=== PATIENT | female | born 1945 | race Caucasian/White ===

== ENCOUNTER → 2016-06-16 | Outpatient (CLI) | payer MEDICARE, BC ==
[2015-12-27 17:39] VITALS: BP 118/71
[~2016-06-16] MED LIST: ALPR0.5T PO; BUPR100T6 PO; BUPR150T15 PO; FLUT1DIS3 IH; OMEG1CAP50 PO; RANI150T6 PO; UMEC1DIS IH
--- NOTE | 2016-06-16 11:21 | RAD ---
Bilateral knee radiographs History: Bilateral knee osteoarthritis. Left knee surgery. Comparison: Right knee radiographs 08/31/2010. Findings: Standing AP, lateral, and oblique views of the right knee. No acute fracture or dislocation is identified. Mild tricompartment degeneration is seen with marginal osteophyte formation and relative preservation of joint space. No joint effusion is seen. Meniscal chondrocalcinosis is noted. Standing AP, lateral, and oblique views of the left knee. Mild lateral and patellofemoral compartment degeneration is seen with marginal osteophyte formation. Mild-moderate medial compartment degeneration is seen with marginal osteophyte formation and mild loss of joint space. Meniscal chondrocalcinosis is seen. Impression: 1. No acute osseous traumatic injury identified. 2. Meniscal chondrocalcinosis. 3. Both kidneys demonstrate tricompartment degeneration, worst in the medial compartment of the left knee where it is mild-moderate severity.
== END | disposition home or self-care (01) ==
LOC: DXRADRC 10:20
PROVIDERS: ATTEND Physician Assistant Medical
DX: M17.0 Bilateral primary osteoarthritis of knee (principal); M11.262 Other chondrocalcinosis, left knee; M11.261 Other chondrocalcinosis, right knee; M25.762 Osteophyte, left knee; M25.761 Osteophyte, right knee
CPT/HCPCS: 73562

== ENCOUNTER → 2016-08-13 | Outpatient (CLI) | payer MEDICARE, BC ==
[2015-12-27 17:39] VITALS: BP 118/71
--- NOTE | 2016-08-13 08:56 | RAD ---
Indication cough for one week. COPD. History of lung cancer. Smoking history. PA and lateral views of the chest were obtained. Comparison is made to an examination 12/27/2015. There is unchanged elevation of the right hemidiaphragm. Heart size is within normal limits. An acute parenchymal infiltrate is not seen. There is a granuloma in the left lung, unchanged. An acute finding in the chest is not seen. A significant change compared to the prior study is not seen. IMPRESSION: No acute finding. No significant change
== END | disposition home or self-care (01) ==
LOC: DXRADRC 08:01
PROVIDERS: ATTEND Nurse Practitioner Family
DX: J44.9 Chronic obstructive pulmonary disease, unspecified (principal); J84.10 Pulmonary fibrosis, unspecified; Z85.118 Personal history of other malignant neoplasm of bronchus and lung; Z87.891 Personal history of nicotine dependence
CPT/HCPCS: 71020

== ENCOUNTER → 2017-01-24 | Outpatient (CLI) | payer MEDICARE ==
[2015-12-27 17:39] VITALS: BP 118/71
--- NOTE | 2017-01-24 11:31 | RAD ---
Examination: Ultrasound pelvis History: History of vaginal discharge Comparison: None available Technique: Transabdominal, transvaginal ultrasound examination of the pelvis. Findings: The uterus is not identified likely prior surgical changes of hysterectomy. The right ovary, left ovary could not be identified. Impression: Limited examination of the right and left ovaries could not be identified. Unremarkable visualized exam.
== END | disposition home or self-care (01) ==
LOC: US 09:45
PROVIDERS: ATTEND Physician Assistant Medical
DX: N89.8 Other specified noninflammatory disorders of vagina (principal); Z87.891 Personal history of nicotine dependence; Z90.710 Acquired absence of both cervix and uterus
CPT/HCPCS: 76830; 76856

== ENCOUNTER → 2017-02-18 | Outpatient (CLI) | payer MEDICARE ==
[2015-12-27 17:39] VITALS: BP 118/71
[~2017-02-18] MED LIST changes: +IOHEXOL 300 MG/ML 75 ML VIAL. IV ONE
--- NOTE | 2017-02-18 19:49 | RAD ---
CT angiography chest with contrast TECHNIQUE: Helical CT imaging of the chest with multiplanar 3-D MIP reconstructions of the pulmonary arteries to assess for emboli with 60 mL Isovue-370 intravenous contrast. COMPARISON: CT chest December 27, 2015. HISTORY: Elevated d-dimer, history of lung cancer status post right lower lobectomy, shortness of breath. FINDINGS: Numerous inferior thyroid substernal nodules and calcifications. Mild fluid within the esophagus perhaps due to reflux. Mild superior pericardial fluid. Heart size normal. Thoracic aorta is unremarkable. Under opacification of the pulmonary arteries may decrease sensitivity to detect small peripheral pulmonary emboli, in light of this no pulmonary artery embolus is evident. No adenopathy in the chest. Minimal dependent right pleural fluid or pleural thickening along the diaphragm is stable. Right lower lobectomy. Left upper lobe and left hilum calcified granulomas. Groundglass opacities at the dependent right lung abutting the diaphragm likely corresponding to the right upper lobe. There is also mild interstitial thickening surrounded by the opacity at the dependent right lung base. Old right rib deformities. IMPRESSION: 1. No pulmonary artery embolus. See discussion above. 2. Right lower lobectomy. There is regional 6 cm groundglass opacity and interstitial thickening with reticulation at the dependent right lung base corresponding to the right upper lobe above the diaphragm. This could represent asymmetric pulmonary edema, changes of radiation treatment, pneumonia or pneumonitis. Consider follow-up imaging in 3 months per Fleischner guidelines to document that this resolves to exclude the possibility of nonmass-like adenocarcinoma or in situ lesion. 3. Mild fluid within the esophagus perhaps related to reflux. 4. Numerous substernal thyroid nodules and calcifications again demonstrated. Exposure: One or more of the following individualized dose reduction techniques were utilized for this examination: 1. Automated exposure control 2. Adjustment of the mA and/or kV according to patient size 3. Use of iterative reconstruction technique Electronically signed by: Chucho Trent MD (02/18/2017 7:46 PM) [facility]
== END | disposition home or self-care (01) ==
LOC: RAD 18:04
PROVIDERS: ATTEND Physician Assistant Medical
DX: R50.9 Fever, unspecified (principal); R06.02 Shortness of breath; R79.1 Abnormal coagulation profile; E04.2 Nontoxic multinodular goiter; Z87.891 Personal history of nicotine dependence
CPT/HCPCS: 71275; Q9967

== ENCOUNTER → 2017-02-18 | Outpatient (CLI) | payer MEDICARE ==
[2015-12-27 17:39] VITALS: BP 118/71
[~2017-02-18] MED LIST changes: -IOHEXOL 300 MG/ML 75 ML VIAL. IV ONE
[2017-02-18 15:37] LABS: BASO # 0.1 x10^3/uL (0.0-0.2); BASO % 1 % (0-3); EOS # 0.1 x10^3/uL (0.0-0.7); EOS % 1 % (0-3); HEMATOCRIT 39.8 % (36.0-47.0); HEMOGLOBIN 13.3 g/dL (12.0-15.5); LYMPH # 1.8 x10^3/uL (1.0-4.8); LYMPH % 13 % (24-48); MEAN CORPUSCULAR HEMOGLOBIN 31 pg (25-35); MEAN CORPUSCULAR HGB CONC 34 g/dL (31-37); MEAN CORPUSCULAR VOLUME 94 fL (79-100); MONO # 1.2 x10^3/uL (0.0-1.1); MONO % 9 % (0-9); NEUT # 10.7 x10^3uL (1.8-7.7); NEUT % 77 % (31-73); PLATELET COUNT 216 x10^3/uL (140-400); RED BLOOD COUNT 4.25 x10^6/uL (3.50-5.40); RED CELL DISTRIBUTION WIDTH 14.3 % (11.5-14.5); WHITE BLOOD COUNT 13.9 x10^3/uL (4.0-11.0)
--- NOTE | 2017-02-18 16:48 | RAD ---
Chest, 2 views, 02/18/2017: History: Cough Comparison comparison is made to a study from 08/13/2016. The heart size is normal. There is mild chronic elevation of the right hemidiaphragm. Unchanged blunting of the right lateral costophrenic angle is compatible with scarring. No acute infiltrates are seen. No pleural fluid is evident. Moderate spurring is present in the spine. IMPRESSION: No acute cardiopulmonary abnormality is detected with no significant change since 08/13/2016.
[2017-02-18 18:34] LABS: GFR 54.7
== END | disposition home or self-care (01) ==
LOC: PMG 15:18
PROVIDERS: ATTEND Nurse Practitioner Family
DX: R05 Cough (principal); R50.9 Fever, unspecified; R06.02 Shortness of breath; Z87.891 Personal history of nicotine dependence
CPT/HCPCS: 36415; 71020; 82565; 85025; 85379

== ENCOUNTER → 2017-08-16 | Outpatient (CLI) | payer MEDICARE ==
[2015-12-27 17:39] VITALS: BP 118/71
[~2017-08-16] MED LIST changes: +RANI150T21 PO; -RANI150T6 PO
--- NOTE | 2017-08-16 16:32 | RAD ---
DATE: 08/16/2017 EXAM: MAMMO SHAWN SCREENING BILATERAL HISTORY: Routine screening COMPARISON: 04/16/2014 This study was interpreted with the benefit of Computerized Aided Detection (CAD). The breast parenchyma is heterogeneously dense, which could reduce sensitivity of mammography. Breast parenchyma level C. FINDINGS: 2-D and 3-D tomosynthesis imaging was performed in CC and MLO projections. No new or enlarging breast densities are seen. Benign type calcifications are present bilaterally. No suspicious microcalcifications have developed. IMPRESSION: Stable mammograms without evidence of malignancy. BI-RADS CATEGORY: 2 BENIGN FINDING(S) RECOMMENDED FOLLOW-UP: 12M 12 MONTH FOLLOW-UP PQRS compliance statement: Patient information was entered into a reminder system with a target due date for the next mammogram. Mammography is a sensitive method for finding small breast cancers, but it does not detect them all and is not a substitute for careful clinical examination. A negative mammogram does not negate a clinically suspicious finding and should not result in delay in biopsying a clinically suspicious abnormality. "Our facility is accredited by the [employer] Mammography [employer]."
== END | disposition home or self-care (01) ==
LOC: MAMMO 10:59
PROVIDERS: ATTEND Physician Assistant Medical
DX: Z12.31 Encounter for screening mammogram for malignant neoplasm of breast (principal); J44.9 Chronic obstructive pulmonary disease, unspecified; K21.9 Gastro-esophageal reflux disease without esophagitis
CPT/HCPCS: 77063; 77067

== ENCOUNTER → 2019-02-16 | Outpatient (CLI) | payer MEDICARE ==
[2015-12-27 17:39] VITALS: BP 118/71
[~2019-02-16] MED LIST changes: +RANI-376 PO; -RANI150T21 PO
--- NOTE | 2019-02-19 17:51 | RAD ---
DATE: 02/16/2019 EXAM: DIGITAL SCREEN BILAT W/CAD HISTORY: Routine screening COMPARISON: 07/11/2012, 04/16/2014, 08/16/2017 mammographic exams This study was interpreted with the benefit of Computerized Aided Detection (CAD). Breast Density: SCATTERED The breast parenchyma shows scattered fibroglandular densities. Breast parenchyma level B. FINDINGS: Parenchymal distribution is stable. No new mass or distortion. Benign-appearing calcifications are present. IMPRESSION: Unremarkable BI-RADS CATEGORY: 1 NEGATIVE RECOMMENDED FOLLOW-UP: 12M 12 MONTH FOLLOW-UP PQRS compliance statement: Patient information was entered into a reminder system with a target due date for the next mammogram. Mammography is a sensitive method for finding small breast cancers, but it does not detect them all and is not a substitute for careful clinical examination. A negative mammogram does not negate a clinically suspicious finding and should not result in delay in biopsying a clinically suspicious abnormality. "Our facility is accredited by the [employer] Mammography [employer]."
== END | disposition home or self-care (01) ==
LOC: MAMMO 13:54
PROVIDERS: ATTEND Physician Assistant Medical
DX: Z12.31 Encounter for screening mammogram for malignant neoplasm of breast (principal); N64.89 Other specified disorders of breast
CPT/HCPCS: 77067

== ENCOUNTER → 2020-02-27 | Outpatient (CLI) | payer MEDICARE ==
[2015-12-27 17:39] VITALS: BP 118/71
--- NOTE | 2020-02-27 15:57 | RAD ---
EXAM: Bilateral digital screening mammogram with tomosynthesis. HISTORY: 75-year-old female presents for screening mammography. TECHNIQUE: Full-field digital craniocaudal and mediolateral oblique 2D and 3D tomosynthesis images of both breasts are obtained for evaluation. Computer aided detection was applied. COMPARISON: 08/16/2017 and 04/16/2014 BREAST PARENCHYMAL DENSITY: Level C - Heterogeneously dense. FINDINGS: There is no new suspicious mass, microcalcification or region of architectural distortion. There are scattered areas of asymmetry and nodularity within both breasts which are stable when allow ing for differences in technique. There are multiple benign calcifications. There is suggestion of ar eas of distortion within both breasts which do not persist between projections or with tomosynthesis images. IMPRESSION: BI-RADS Category 2: Benign finding(s). RECOMMENDATION: Annual mammography is recommended. If your mammogram demonstrates that you have dense breast tissue, which could hide abnormalities, and if you have other risk factors for breast cancer that have been identified, you might benefit from s upplemental screening tests that may be suggested by your ordering physician. Dense breast tissue, i n and of itself, is a relatively common condition. This information is not provided to cause undue c oncern, but rather to raise your awareness and to promote discussion with your physician regarding th e presence of other risk factors, in addition to dense breast tissue. A report of your mammography re sults will be sent to you and your physician. You should contact your physician if you have any ques tions or concerns regarding this report. Mammography is a sensitive method for finding small breast cancers, but it does not detect them all a nd is not a substitute for careful clinical examination. A negative mammogram does not negate a clin ically suspicious finding and should not result in delay in biopsying a clinically suspicious abnorma lity. PQRS compliance statement - Patient information was entered into a reminder system with a target due date for the next mammogram. "Our facility is accredited by the [employer] Mammography [employer]." Electronically signed by: Nano Sterling MD (02/27/2020 3:55 PM) [id number]
== END ==
LOC: MAMMO 13:22
PROVIDERS: ATTEND Physician Assistant Medical
DX: Z12.31 Encounter for screening mammogram for malignant neoplasm of breast (principal)
CPT/HCPCS: 77063; 77067

== ENCOUNTER → 2020-09-11 | Outpatient (CLI) | payer MEDICARE ==
[2015-12-27 17:39] VITALS: BP 118/71
--- NOTE | 2020-09-11 16:16 | RAD ---
Chest, PA and Lateral: Technique: PA and lateral views of the chest were obtained. History: Shortness of breath. Comparison: 02/18/2017. Findings: Mild cardiomegaly unchanged. There is mild elevation of the right hemidiaphragm. There is mild diffus e prominent bilateral interstitial lung markings likely congestive changes or interstitial infiltrate s. Moderate degenerative thoracic spine. IMPRESSION: Mild diffuse prominent bilateral interstitial lung markings likely congestive changes or interstitial infiltrates. Electronically signed by: Devante Camarillo MD (09/11/2020 4:13 PM) [id number]
== END ==
LOC: RAD 12:58
PROVIDERS: ATTEND Nurse Practitioner Family
DX: R06.02 Shortness of breath (principal)
CPT/HCPCS: 71046